=== PATIENT | female | born 1965 | race Two or more races ===

== ENCOUNTER 2017-02-10 18:39 | Emergency (ER) | payer SELFPAY ==
[~2017-02-10] VITALS: Ht 177.8 cm; Wt 86.2 kg
[2017-02-10] MEDS ORDERED: IBUPROFEN 600 MG TAB PO ONE ×2 (18:50→19:15)
[2017-02-10 19:05] VITALS: BP 134/82
== END 2017-02-10 23:22 | disposition left against medical advice (07) ==
LOC: ER 18:43
DX: M25.572 Pain in left ankle and joints of left foot (principal); Z53.21 Procedure and treatment not carried out due to patient leaving prior to being seen by health care provider; W01.0XXA Fall on same level from slipping, tripping and stumbling without subsequent striking against object, initial encounter; Y93.89 Activity, other specified; Y99.8 Other external cause status; Y92.89 Other specified places as the place of occurrence of the external cause
CPT/HCPCS: 73610